=== PATIENT | female | born 1970 | race African-American/Black ===

== ENCOUNTER 2018-07-08 14:23 | Inpatient (IN) | payer OTHER ==
[2018-07-08 17:06] VITALS: BMI 23.0
--- NOTE | 2018-07-08 18:07 | HP ---
CIWA Score - Admission Criteria [facility]ASAS Guidelines: Admission for Medically Managed Detox: Requires at least one of the followin. CIWA greater than 12 2. Seizures within the past 24 hours 3. Delirium tremens within the past 24 hours 4. Hallucinations within the past 24 hours 5. Acute intervention needed for co occurring medical disorder 6. Acute intervention needed for co occurring psychiatric disorder 7. Severe withdrawal that cannot be handled at a lower level of care (continued vomiting, continued diarrhea, abnormal vital signs) requiring intravenous medication and/or fluids 8. Admission ROS S - HPI Chief Complaint: heroin and cocaine rehabilitation Allergies/Adverse Reactions: Allergies Allergy/AdvReac Type Severity Reaction Status Date / Time No Known Allergies Allergy Verified 07/08/18 16:54 History of Present Illness: 48 yo female with hx of nicotine, heroin (nasal) and cocaine dependence is here seeking rehab, Patient reports completed detox today at [facility] and referred to our facility. PMHX: HTN, neuropathy Psych: depression non-adherent with meds Denie shx of seizures overdose or blackouts Hx of MMTP for 15 years stopped attending two years ago Exam Limitations: No Limitations - Ebola screening Have you traveled outside of the country in the last 21 days: No Have you had contact with anyone from an Ebola affected area: No Do you have a fever: No - Review of Systems Constitutional: Night Sweats, Changes in sleep EENT: reports: No Symptoms Reported Respiratory: reports: No Symptoms reported Cardiac: reports: No Symptoms Reported GI: reports: Constipated (last BM today), Diarrhea : reports: No Symptoms Reported Musculoskeletal: reports: Joint Pain Integumentary: reports: No Symptoms Reported Neuro: reports: Other (neuropathy b/l extremities) Endocrine: reports: No Symptoms Reported Hematology: reports: No Symptoms Reported Psychiatric: reports: Orientated x3, Anxious, Depressed Other Systems: Reviewed and Negative Patient History - Patient Medical History Hx Anemia: No Hx Asthma: No Hx Chronic Obstructive Pulmonary Disease (COPD): No Hx Cancer: No Hx Cardiac Disorders: No Hx Congestive Heart Failure: No Hx Hypertension: Yes Hx Hypercholesterolemia: No Hx Pacemaker: No HX Cerebrovascular Accident: No Hx Seizures: No Hx Dementia: No Hx Diabetes: Yes (Pre-diabetic ) Hx Gastrointestinal Disorders: No Hx Liver Disease: No Hx Genitourinary Disorders: No Hx Sexually Transmitted Disorders: Yes (gonorrhea ) Hx Renal Disease (ESRD): No Hx Thyroid Disease: No Hx Human Immunodeficiency Virus (HIV): No Hx Hepatitis C: No Hx Depression: Yes Hx Suicide Attempt: No Hx Bipolar Disorder: No Hx Schizophrenia: No - Patient Surgical History Past Surgical History: Yes Hx Section: Yes (x1) - PPD History Previous Implant?: No Documented Results: Negative w/o proof PPD to be Administered?: Yes - Reproductive History Patient is a Female of Child Bearing Age (11 -55 yrs old): Yes (post menopausal ) Patient : No - Smoking Cessation Smoking history: Current every day smoker Have you smoked in the past 12 months: Yes Aproximately how many cigarettes per day: 20 Hx Chewing Tobacco Use: No Initiated information on smoking cessation: Yes 'Breaking Loose' booklet given: 07/08/18 - Substance & Tx. History Hx Alcohol Use: No Hx Substance Use: Yes Substance Use Type: Cocaine, Heroin Hx Substance Use Treatment: Yes (Complted detox today at [facility] ) - Substances abused Heroin Other (specify): SNIFF Frequency: Daily Amount used: 2 BUNDLES Age of first use: 21 Date of last use: 07/03/18 Cocaine Substance route: Smoking Frequency: Daily Amount used: $40 Age of first use: 34 Date of last use: 07/03/18 Family Disease History - Family Disease History Family Disease History: Other: Grandparent (alcoholism ), Father (GATO), Mother ( GATO) Admission Physical Exam [facility] - Vital Signs Vital Signs: Vital Signs - 24 hr 07/08/18 07/08/18 16:56 17:11 Temperature 97.3 F L 97.3 F L Pulse Rate 74 74 Respiratory 18 18 Rate Blood Pressure 133/84 133/84 - Physical General Appearance: Yes: Appropriately Dressed, Thin, Anxious HEENTM: Yes: EOMI, Hearing grossly Normal, Normal ENT Inspection, Normocephalic , Normal Voice, LUX, Pharynx Normal, Tm's normal Respiratory: Yes: Chest Non-Tender, Lungs Clear, Normal Breath Sounds, No Respiratory Distress, No Accessory Muscle Use Neck: Yes: Within Normal Limits Breast: Yes: Breast Exam Deferred Cardiology: Yes: Regular Rhythm, Regular Rate Abdominal: Yes: Normal Bowel Sounds, Non Tender, Flat, Soft Genitourinary: Yes: Within Normal Limits Back: Yes: Normal Inspection Musculoskeletal: Yes: full range of Motion, Gait Steady Extremities: Yes: Normal Capillary Refill, Normal Inspection, Normal Range of Motion, Non-Tender 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 intact, Fully Oriented, Alert, Motor Strength 5/5, Depressed Affect Integumentary: Yes: Normal Color, Dry, Warm Lymphatic: Yes: Within Normal Limits - Diagnostic (1) Essential (primary) hypertension Current Visit: Yes Status: Chronic (2) Neuropathy Current Visit: Yes Status: Chronic (3) Opioid dependence Current Visit: Yes Status: Acute Qualifiers: Substance use status: uncomplicated Qualified Code(s): F11.20 - Opioid dependence, uncomplicated (4) Nicotine dependence Current Visit: Yes Status: Acute Qualifiers: Nicotine product type: cigarettes (5) Cocaine dependence Current Visit: Yes Status: Acute Qualifiers: Substance use status: uncomplicated Qualified Code(s): F14.20 - Cocaine dependence, uncomplicated Breathalyzer - Breathalyzer Breathalyzer: 0 POC Urine test - Test device test lot number: [id number] Expiration date: 12/10/19 - Control test control: Yes - Result Urine Test Results: Negative - NO line present Urine Drug Screen - Test Device Lot number: [id number] Expiration date: 02/09/20 - Control Is test valid?: Yes - Results Drug screen NEGATIVE: No Urine drug screen results: GABY-Cocaine, MOP-Opiates, MTD-Methadone, BZO- Benzodiazepines Inpatient Rehab Admission - Rehab Decision to Admit Inpatient rehab admission?: Yes - Initial Determination Are CD services needed?: Yes Free of communicable disease: Yes Not in need of hospitalization: Yes - Rehab Admission Criteria Previous failed treatment: Yes Poor recovery environment: Yes Comorbidities: Yes Lacks judgement: Yes Patient is meeting Inpatient Rehab admission criteria:: Yes
[2018-07-08] MEDS ORDERED: guaiFENesin 200 MG/10 ML 10 ML UNIT-DOSE CUPS PO PRN (18:16)
[2018-07-08] MEDS ORDERED: MENTHOL/PHENOL 1 EACH UD MM PRN (18:16)
[2018-07-08] MEDS ORDERED: hydrOXYzine PAMOATE 50 MG CAPSULE (FP) PO PRN (18:16)
[2018-07-08] MEDS ORDERED: IBUPROFEN 400 MG TABLET (FP) PO PRN (18:16)
[2018-07-08] MEDS ORDERED: ACETAMINOPHEN 325 MG TABLET (FP) PO PRN (18:16)
[2018-07-08] MEDS ORDERED: MAGNESIUM CITRATE 300 ML BOTTLE PO PRN (18:16)
[2018-07-08] MEDS ORDERED: LOPERAMIDE HCL 2 MG CAPSULE PO PRN (18:16)
[2018-07-08] MEDS ORDERED: MAG HYDROX/AL HYDROX/SIMETH 30 ML UNIT-DOSE CUP PO PRN (18:16)
[2018-07-08] MEDS ORDERED: P-EPHED 60MG/TRIPROLIDI 2.5MG TABLET PO PRN (18:16)
[2018-07-08] MEDS ORDERED: MAGNESIUM HYDROX 2400MG/30ML ORAL SUSPENSION 30 ML CUP PO PRN (18:16)
[2018-07-08] MEDS ORDERED: TUBERCULIN PPD 5 TU/0.1ML VIAL ID ONE (19:13)
[2018-07-08] MEDS: GABAPENTIN 300 MG CAPSULE (FP) PO SCH (21:16)
[2018-07-08] MEDS: CYCLOBENZAPRINE HCL 5 MG TABLET PO SCH (21:16)
[2018-07-08] MEDS: THIAMINE HCL 100 MG TABLET (FP) PO SCH (21:17)
[2018-07-09 02:10] LABS: EPI CELLS >36 /HPF (0-5/HPF); PH,URINE 8.5 (5.0-8.0); URINE APPEARANCE CLOUDY; URINE BACTERIA 2377.7 /hpf (NEGATIVE); URINE BILIRUBIN NEGATIVE (NEGATIVE); URINE CASTS 17 /lpf (0-8); URINE COLOR YELLOW; URINE GLUCOSE (UA) NEGATIVE (NEGATIVE); URINE KETONE NEGATIVE (NEGATIVE); URINE LEUK ESTERASE 1+ (NEGATIVE); URINE NITRITE NEGATIVE (NEGATIVE); URINE PROTEIN NEGATIVE (NEGATIVE); URINE RBC 8 /hpf (0-4); URINE WBC 36 /hpf (0-5)
[2018-07-09] MEDS: CYCLOBENZAPRINE HCL 5 MG TABLET PO SCH ×3 (06:30→21:25)
[2018-07-09] MEDS: NICOTINE POLACRILEX 2 MG GUM BC PRN ×2 (06:31→10:05)
--- NOTE | 2018-07-09 08:32 | EKG ---
Test Reason : Blood Pressure : / mmHG Vent. Rate : 062 BPM Atrial Rate : 062 BPM P-R Int : 184 ms QRS Dur : 082 ms QT Int : 418 ms P-R-T Axes : 070 061 029 degrees QTc Int : 424 ms NORMAL SINUS RHYTHM POSSIBLE LEFT ATRIAL ENLARGEMENT BORDERLINE ECG NO PREVIOUS ECGS AVAILABLE Confirmed by MD HAL, ALVERTO ([id number]) on 07/09/2018 8:32:19 AM Referred By: Confirmed By:ALVERTO HONG MD
[2018-07-09] MEDS ORDERED: PATIENT'S OWN MEDICATION (NON-FORMULARY) (Losartan/Hydrochlorothiazide [Losartan-Hctz 100- PO SCH (10:00)
[2018-07-09] MEDS: PRENATAL VITAMINS W/ FOLIC ACID TABLET (FP) PO SCH (10:05)
[2018-07-09] MEDS: HYDROCHLOROTHIAZIDE 12.5 MG CAPSULE (FP) PO SCH (10:05)
[2018-07-09] MEDS: LOSARTAN POTASSIUM 50 MG TABLET (FP) PO SCH (10:06)
[2018-07-09] MEDS: NICOTINE 21 MG/24 HOURS TOPICAL PATCH TD SCH (10:06)
--- NOTE | 2018-07-09 10:53 | CONSULT ---
[facility] Psychiatric Consult - Data Date of interview: 07/09/18 Admission source: [facility] Identifying data: Patient is a 48 year old female, , mother of two, unemployed (denies receiving financial assistance), and is currently homeless. This is patient's first admission to rehab at [facility]. Patient admitted to for opiate and cocaine dependence. Substance Abuse History: - Smoking Cessation. Smoking history: Current every day smoker. Have you smoked in the past 12 months: Yes. Aproximately how many cigarettes per day: 20. Hx Chewing Tobacco Use: No. Initiated information on smoking cessation: Yes. 'Breaking Loose' booklet given: 07/08/18. - Substance & Tx. History. Hx Alcohol Use: No. Hx Substance Use: Yes. Substance Use Type : Cocaine, Heroin. Hx Substance Use Treatment: Yes (Complted detox today at [facility] ). - Substances abused. Heroin. Other (specify): SNIFF. Frequency: Daily. Amount used: 2 BUNDLES. Age of first use: 21. Date of last use: . Cocaine. Substance route: Smoking. Frequency: Daily. Amount used: $ 40. Age of first use: 34. Date of last use: 07/03/18 Medical History: Significant for hypertension, Prediabetic, gonorrhea Psychiatric History: Patient's first psychatric contact was with a private psychiatrist while in her 30's (early s) to address her depression. She reports seeing the psychiatrist for approximatey 2 years before discontining treatment. She resumed psychiatric treatment in 2008 while in the methadone program at the [facility] in [place]. She reports being prescribed zoloft (unknown dose) while in treatment. Ms. Fernandez discontinued psychiatric treatment in 2016. She reports last taking zoloft "over one year ago." Patient denies h/o psychiatric hospitalization and suicide attempt. She reports relapsing in 2008 after her became paralyzed secondary to a broken neck fracture. At present she reports feeling sad and hopeless. She's agreeable to restarting zoloft. Physical/Sexual Abuse/Trauma History: denies. Mental Status Exam - Mental Status Exam Alert and Oriented to: Time, Place, Person Cognitive Function: Good Patient Appearance: Well Groomed Mood: Sad Affect: Mood Congruent Patient Behavior: Cooperative Speech Pattern: Appropriate Thought Disorder: Not Present Hallucinations: Denies Suicidal Ideation: Denies Homicidal Ideation: Denies Insight/Judgement: Poor Sleep: Fair Appetite: Fair Muscle strength/Tone: Normal Gait/Station: Normal Psychiatric Findings - Problem List ([place] 1, 2,3) (1) Cocaine dependence Current Visit: Yes Status: Acute Qualifiers: Substance use status: uncomplicated Qualified Code(s): F14.20 - Cocaine dependence, uncomplicated (2) Nicotine dependence Current Visit: Yes Status: Acute Qualifiers: Nicotine product type: cigarettes (3) Opioid dependence Current Visit: Yes Status: Acute Qualifiers: Substance use status: uncomplicated Qualified Code(s): F11.20 - Opioid dependence, uncomplicated (4) Substance induced mood disorder Current Visit: Yes Status: Acute (5) Depressive disorder Current Visit: Yes Status: Chronic - Initial Treatment Plan Initial Treatment Plan: Psychoeducation provided. Rehab in progress. Will order Zoloft 25mg HS. Patient also informed that melatonin 5mg is available for insomnia. Benefits and side effects discussed. Verbal consent given.
[2018-07-09 11:36] LABS: HEMATOCRIT 40.1 % (32.4-45.2); HEMOGLOBIN 13.4 GM/dL (10.7-15.3); MCHC 33.6 g/dl (32.0-36.0); MEAN CELL VOLUME 92.4 fl (80-96); MEAN PLT VOLUME 8.3 fl (7.5-11.1); PLATELET COUNT 329 K/MM3 (134-434); RBC 4.34 M/mm3 (3.60-5.2); RDW 13.8 % (11.6-15.6); WHITE BLOOD COUNT 6.7 K/mm3 (4.0-10.0)
[2018-07-09 11:47] LABS: ALBUMIN 3.5 g/dl (3.4-5.0); ALK PHOS 75 U/L (45-117); ANION GAP 8 MMOL/L (8-16); BILIRUBIN,TOTAL 0.2 mg/dL (0.2-1); BLOOD UREA NITROGEN 16 mg/dL (7-18); CHLORIDE 104 mmol/L (98-107); CO2 29 mmol/L (21-32); CREATININE 0.9 mg/dL (0.55-1.3); GLUCOSE,RANDOM 106 mg/dL (74-106); POTASSIUM 4.2 mmol/L (3.5-5.1); SGOT/AST 34 U/L (15-37); SGPT/ALT 43 U/L (13-61); SODIUM 141 mmol/L (136-145)
[2018-07-09] MEDS ORDERED: PT OWN MED DRAWER 7, Y5N ONE (20:06)
[2018-07-09] MEDS: THIAMINE HCL 100 MG TABLET (FP) PO SCH (21:25)
[2018-07-09] MEDS: GABAPENTIN 300 MG CAPSULE (FP) PO SCH (21:25)
[2018-07-09] MEDS: MELATONIN 5 MG TABLETS PO PRN (21:25)
[2018-07-09] MEDS: SERTRALINE HCL 25 MG TABLET (FP) PO SCH (21:25)
[2018-07-10] MEDS: CYCLOBENZAPRINE HCL 5 MG TABLET PO SCH ×3 (06:25→21:19)
[2018-07-10] MEDS: NICOTINE POLACRILEX 2 MG GUM BC PRN ×2 (06:26→09:49)
[2018-07-10] MEDS: LOSARTAN POTASSIUM 50 MG TABLET (FP) PO SCH (09:48)
[2018-07-10] MEDS: HYDROCHLOROTHIAZIDE 12.5 MG CAPSULE (FP) PO SCH (09:48)
[2018-07-10] MEDS: PRENATAL VITAMINS W/ FOLIC ACID TABLET (FP) PO SCH (09:48)
[2018-07-10] MEDS: NICOTINE 21 MG/24 HOURS TOPICAL PATCH TD SCH (09:49)
[2018-07-10] MEDS: MELATONIN 5 MG TABLETS PO PRN (21:19)
[2018-07-10] MEDS: GABAPENTIN 300 MG CAPSULE (FP) PO SCH (21:19)
[2018-07-10] MEDS: THIAMINE HCL 100 MG TABLET (FP) PO SCH (21:19)
[2018-07-10] MEDS: SERTRALINE HCL 25 MG TABLET (FP) PO SCH (21:20)
[2018-07-11] MEDS: CYCLOBENZAPRINE HCL 5 MG TABLET PO SCH (06:39)
[2018-07-11] MEDS: NICOTINE POLACRILEX 2 MG GUM BC PRN (06:40)
[2018-07-11 07:18] VITALS: TEMP 97.9
[2018-07-11 09:37] VITALS: BP 113/73; PULSE 96
[2018-07-11] MEDS: PRENATAL VITAMINS W/ FOLIC ACID TABLET (FP) PO SCH (09:44)
[2018-07-11] MEDS: LOSARTAN POTASSIUM 50 MG TABLET (FP) PO SCH (09:45)
[2018-07-11] MEDS: HYDROCHLOROTHIAZIDE 12.5 MG CAPSULE (FP) PO SCH (09:45)
[2018-07-11] MEDS: NICOTINE 21 MG/24 HOURS TOPICAL PATCH TD SCH (09:45)
--- NOTE | 2018-07-11 11:35 | PN ---
[facility] Progress Note (SOAP) Subjective: Patient leaving [facility] because she said, "I want a more intensive program. This is not intense enough." Objective: No neurological deficits noted, heart rate regular, lungs clear, abd soft, non- tender, non-distended, + BS. 07/11/18 11:34 CBC, BMP 07/09/18 09:00 07/09/18 09:00 Vital Signs (72 hours) 07/08/18 07/08/18 07/08/18 16:56 17:11 20:45 Temperature 97.3 F L 97.3 F L 98.2 F Pulse Rate 74 74 79 Respiratory 18 18 18 Rate Blood Pressure 133/84 133/84 149/73 07/09/18 07/09/18 07/09/18 00:30 03:30 06:35 Temperature 98.1 F Pulse Rate 81 Respiratory 18 18 18 Rate Blood Pressure 115/71 07/09/18 07/10/18 07/10/18 09:44 00:30 03:30 Temperature Pulse Rate 88 Respiratory 18 16 16 Rate Blood Pressure 126/73 07/10/18 07/10/18 07/11/18 07:04 09:10 00:30 Temperature 97.7 F Pulse Rate 69 90 Respiratory 18 16 Rate Blood Pressure 129/85 120/78 07/11/18 07/11/18 07/11/18 03:30 07:17 09:36 Temperature 97.9 F Pulse Rate 80 96 H Respiratory 16 18 Rate Blood Pressure 127/82 113/73 Assessment: Medically stable for discharge Discharge Dx: Hypertension Neuropathy, cocaine dependence, chronic 07/11/18 11:36 Plan: Client states she is going back to her program in [place], [place] called [facility]. Her PCP is Dr. Flores in [place]. Lorsartan was prescribed for 30 days and transmitted to [facility].
== END 2018-07-11 12:26 | disposition left against medical advice (07) | DRG 770 ==
LOC: YASAS 14:23 → Y3E 18:35
PROVIDERS: ADMIT Neuromusculoskeletal Medicine & OMM; ATTEND Neuromusculoskeletal Medicine & OMM
PROC: HZ2ZZZZ Detoxification Services for Substance Abuse Treatment (ICD-10-PCS; principal; 2018-07-08)
DX: F11.20 Opioid dependence, uncomplicated (principal); F14.20 Cocaine dependence, uncomplicated; F17.210 Nicotine dependence, cigarettes, uncomplicated; F19.24 Other psychoactive substance dependence with psychoactive substance-induced mood disorder; F32.9 Major depressive disorder, single episode, unspecified; I10 Essential (primary) hypertension; G62.9 Polyneuropathy, unspecified; R73.09 Other abnormal glucose; Z86.19 Personal history of other infectious and parasitic diseases; Z59.0 Homelessness
CPT/HCPCS: 36415; 80053; 81003; 85027; 86593; 93005; 93010